=== PATIENT | female | born 1965 | race Caucasian/White ===

== ENCOUNTER → 2016-12-06 | Outpatient (CLI) | payer BC | END | disposition home or self-care (01) | LOC: C.PAPS 09:25 | PROVIDERS: ATTEND Obstetrics & Gynecology | DX: Z01.419 Encounter for gynecological examination (general) (routine) without abnormal findings (principal) ==

== ENCOUNTER → 2017-01-10 | Outpatient (CLI) | payer BC ==
--- NOTE | 2017-01-11 12:10 | MAMMOGRAPHY REPORT ---
BILATERAL DIGITAL SCREENING MAMMOGRAM TOMOSYNTHESIS WITH CAD: 01/10/2017 CLINICAL HISTORY: Routine screening. Patient has no complaints. TECHNIQUE: Breast tomosynthesis in addition to standard 2D mammography was performed. Current study was also evaluated with a Computer Aided Detection (CAD) system. COMPARISON: Comparison is made to exams dated: 12/01/2015 mammogram, 09/25/2014 mammogram, 08/29/2013 mamm ogram, 07/19/2012 mammogram, 06/16/2011 mammogram, and 04/22/2010 mammogram - [facility] nter. BREAST COMPOSITION: The tissue of both breasts is heterogeneously dense, which may obscure small mas ses. FINDINGS: There are a few stable benign round microcalcifications in the lateral left breast. The pa renchymal pattern is similar to prior mammograms. No new suspicious mass, architectural distortion o r cluster of microcalcifications is seen. IMPRESSION: ACR BI-RADS CATEGORY 1: NEGATIVE There is no mammographic evidence of malignancy. A 1 year screening mammogram is recommended. The pa tient will receive written notification of the results. Approximately 10% of breast cancers are not detected with mammography. A negative mammographic report should not delay biopsy if a clinically suggestive mass is present. Fatemeh Gomez M.D. ay/:01/11/2017 08:10:44 Dry Cell Tester: Katie RENO(Liya)(M), [facility] letter sent: Normal 1/2 BI-RADS Code: ACR BI-RADS Category 1: Negative
== END | disposition home or self-care (01) ==
LOC: C.MAMM 17:19
PROVIDERS: ATTEND Obstetrics & Gynecology
DX: Z12.31 Encounter for screening mammogram for malignant neoplasm of breast (principal)

== ENCOUNTER → 2017-06-13 | Outpatient (CLI) | payer BC ==
[2017-06-13 13:46] LABS: BLOOD UREA NITROGEN 12 mg/dl (7-18); BUN/CREATININE RATIO 13.6 (10-20); CALCIUM 8.7 mg/dl (8.5-10.1); CARBON DIOXIDE 27 mmol/L (21-32); CHLORIDE 105 mmol/L (98-107); CREATININE 0.87 mg/dl (0.60-1.20); GLUCOSE 119 mg/dl (70-99); POTASSIUM 3.8 mmol/L (3.5-5.1); SODIUM 136 mmol/L (136-145)
[2017-06-13 13:49] LABS: CHOLESTEROL 250 mg/dl (0-200); CHOLESTEROL/HDL RATIO 6.1; HDL CHOLESTEROL 41 mg/dl; LDL CHOLESTEROL CALCULATED 170 mg/dl; TRIGLYCERIDES 194 mg/dl (0-150); VERY LOW DENSITY LIPOPROT CALC 39 mg/dl
== END | disposition home or self-care (01) ==
LOC: C.LABPVFM 10:19
PROVIDERS: ATTEND Nurse Practitioner
DX: R73.01 Impaired fasting glucose (principal); E78.00 Pure hypercholesterolemia, unspecified

== ENCOUNTER 2019-01-17 08:04 | Observation (INO) ==
--- NOTE | 2018-12-23 14:25 | PAT Medication Instructions ---
Medication Instructions Date of Service December 23, 2018 Home Medications Medication Instructions Recorded atorvastatin 10 mg tablet 10 mg PO QPM #90 tab 12/16/18 atorvastatin 10 mg tablet 10 mg PO QPM cholecalciferol (vitamin D3) [Vitamin D3] 1,000 unit PO QPM sertraline 100 mg PO QPM Take evening before surgery atorvastatin 10 mg tablet 10 mg PO QPM cholecalciferol (vitamin D3) [Vitamin D3] 1,000 unit PO QPM sertraline 100 mg PO QPM Other Notes If you have any questions please call us at [phone] or [phone] or [phone] or [phone]
--- NOTE | 2018-12-24 11:42 | Anesthesiology Consultation ---
Date of Service December 24, 2018 Assessment & Plan (1) Encounter for pre-operative examination: - Preop EKG done 12/24/18 still unconfirmed at time of review. Will need to review confirmed EKG AM DOS. - Check test AM DOS Chart Review Chart Review: Acceptable Risk for Surgery and Patient seen in Pre Admission Testing Teaching & Discussion Pre-Anesthesia Teaching/Discussion Notes: Instructed NPO after midnight before surgery,except medications with 15 cc of water. Medication instructions provided according to the PAT guidelines. History Surgery Operation Date: 01/17/19 09:50 Proposed Procedures p Robotic Total Laparoscopic Hysterectomy - Kaley Chapman MD, FACOG Height/Weight Height: 5 ft 2.25 in Weight: 65.5 kg Allergies Allergy/AdvReac Type Severity Reaction Status Date / Time erythromycin base AdvReac Intermediate Diarrhea Verified 12/19/18 14:13 Medications Home Medications Medication Instructions Recorded Confirmed Last Taken atorvastatin 10 mg tablet 10 mg PO QPM #90 tab 12/16/18 Unknown cholecalciferol (vitamin D3) 1,000 unit PO QPM 12/19/18 12/19/18 Unknown [Vitamin D3] sertraline 100 mg PO QPM 12/19/18 12/19/18 Unknown Past Medical History Medical History Anxiety History of IBS Hyperlipidemia Osteoarthritis Exercise / Class Metabolic Activity II 4-5 Yardwork/Stairs/Walk up hill Past Family History Family History Grandfather (Paternal) Family history of diabetes mellitus Uncle Family history of esophageal cancer Past Surgical History Surgical History History of colonoscopy History of tooth extraction Hx of LASIK Past Anesthesia History No Hx of Anesthesia Complications and No Family Hx of Anesthesia Complications History of PONV No Hx of PONV and Hx of Motion Sickness Social History Smoking Status: Never smoker Do You Dip or Chew Tobacco: No Hx Alcohol Use: Yes alcohol intake frequency: holidays/special occasions only Hx Substance Use: No substance use type: does not use Review of Systems Patient denies chest pain, shortness of breath, dyspnea on exertion, reflux, cough, wheezing, palpitations. Physical Exam Vital Signs VITALS BP 127/75 P 74 TEMP 97.9 SP02 97%RA RESP 16 PHYSICAL Full neck and c-spine range of motion. Full TMJ range of motion. TMD 2.5 finger breaths Mallampati Score 3 Dentition: intact, upper front crowns, implants on upper front/sides, crowns on lower molars Lungs: clear throughout to auscultation Cardiac: regular rate and rhythm, no murmurs noted Spine: normal Carotid arteries: negative bruit Extremities: no edema Testing Laboratory Results 12/24/18 12:10 Blood Type A Positive 12/24/18 12:10 Antibody Screen NEGATIVE 12/24/18 12:10 12/18/18 SODIUM 139 POTASSIUM 4.1 CHLORIDE 106 CO2 28 BUN 15 CREATININE 0.89 GLUCOSE 84 Electrocardiogram Date: 12/24/18 NSR at 71bpm. Rightward axis (unconfirmed) Chest X-Ray Date: 12/24/18 Findings: + NAD
--- NOTE | 2018-12-24 12:57 | XRay Report ---
XR chest Pre-admission PA/Lat HISTORY: 53 years-old Female pat preoperative exam. COMPARISON: None available TECHNIQUE: PA and lateral views of the chest FINDINGS: Cardiomediastinal and hilar silhouettes are within normal limits. No pneumothorax, pleural effusion, focal airspace consolidation or overt pulmonary edema. Bones of the chest appear grossly intact. IMPRESSION: No acute process. The above report was generated using voice recognition software. It may contain grammatical, syntax o r spelling errors. Electronically signed by: Fam Parra M.D. 12/24/2018 12:56 PM
[2018-12-24 13:33] LABS: Basophils # (auto) 0.05 K/uL (0-0.2); Basophils % (auto) 0.9 %; Eosinophils # (auto) 0.08 K/uL (0-0.5); Eosinophils % (auto) 1.4 %; Hematocrit (blood only) 41.3 % (37-47); Hemoglobin 15.2 g/dL (12.0-16.0); Immature Granulocytes # (auto) 0.01 K/uL (0.00-0.02); Immature Granulocytes % (auto) 0.2 %; Lymphocytes # (auto) 1.92 K/uL (1.2-3.4); Lymphocytes % (auto) 33.2 %; Mean Corpuscular Hgb Conc 36.8 g/dL (32-36); Monocytes # (auto) 0.34 K/uL (0.11-0.59); Monocytes % (auto) 5.9 %; Neutrophils # (auto) 3.39 K/uL (1.4-6.5); Neutrophils % (auto) 58.4 %; Platelet Count 271 K/uL (130-400); RDW Coefficient of Variation 11.9 % (11.5-14.5); RDW Standard Deviation 37.6 fL (36.4-46.3); White Blood Count 5.79 K/uL (4.8-10.8)
[~2019-01-17 08:04] MED LIST: ACETAMINOPHEN 1000 MG/100 ML IV IV ONE; CEFAZOLIN 2000MG 2,000 MG/15 ML SYR IV SCH; LACTATED RINGER'S 1,000 ML IV SCH; LR 15ML/HR IV SCH
[2019-01-17] MEDS ORDERED: ePHEDrine sulfate 50 MG/ML AMP IV PRN (08:49)
[2019-01-17] MEDS ORDERED: ONDANSETRON INJ 2 MG/ML 2 ML VIAL IV PRN ×2 (08:49→14:03)
[2019-01-17] MEDS ORDERED: HYDROmorphone INJ 1 MG/ML SYRINGE IV PRN (08:49)
[2019-01-17] MEDS ORDERED: MEPERIDINE HCL 25 MG/ML CARP IV PRN (08:49)
[2019-01-17] MEDS ORDERED: PHENYLEPHRINE 100MCG/ML 5ML SYR IV PRN (08:49)
[2019-01-17] MEDS ORDERED: ATROPINE SULFATE 0.1 MG/ML 10ML SYR IV PRN (08:49)
[2019-01-17] MEDS ORDERED: GLYCOPYRROLATE 0.2 MG/ML VIAL ONE (09:25)
[2019-01-17] MEDS ORDERED: fentaNYL citrate 100 MCG/2 ML VIAL ONE ×4 (09:25→13:06)
[2019-01-17] MEDS ORDERED: MIDAZOLAM HCL 1 MG/ML 2ML VIAL ONE (09:25)
[2019-01-17] MEDS ORDERED: ONDANSETRON INJ 2 MG/ML 2 ML VIAL ONE ×2 (09:25→11:54)
[2019-01-17] MEDS ORDERED: PROPOFOL IV EMULSION 10 MG/ML 20 ML VIAL IV ONE (09:25)
[2019-01-17] MEDS ORDERED: NEOSTIGMINE METHYLSULFATE 5 MG/5 ML SYR ONE (09:25)
[2019-01-17] MEDS ORDERED: LIDOCAINE HCL 2% 2 ML VIAL/AMP(20MG/ML) INFIL ONE (09:25)
[2019-01-17] MEDS ORDERED: ROCURONIUM BROMIDE 10 MG/ML 5 ML VIAL ONE (09:25)
[2019-01-17] MEDS ORDERED: DEXAMETHASONE SOD INJ 4 MG/ML VIAL ONE ×2 (09:25→11:54)
--- NOTE | 2019-01-17 09:26 | History & Physical Bridge Note ---
Date of Service January 17, 2019 History & Physical Bridge Note I have examined the patient, reviewed the History & Physical and in the interval since the performance of the History & Physical I have noted the following changes of clinical significance: no changes noted
[2019-01-17] MEDS ORDERED: SCOPOLAMINE 1.5 MG TDSY ONE (09:34)
[2019-01-17] MEDS ORDERED: SCOPOLAMINE 1.5 MG TDSY TD ONE (09:37)
[2019-01-17] MEDS ORDERED: BUPIVACAINE 0.5 % 5 MG/1 ML MPF 30ML VIAL ONE (09:49)
[2019-01-17] MEDS ORDERED: TISSEEL FIBRIN SEALANT 4ML TOP ONE (11:27)
--- NOTE | 2019-01-17 12:27 | Operative Report ---
Post Operative Report Pre & Post Diagnosis Operation Date: 01/17/19 09:20 Pre-Op Diagnosis: Uterine Enlargement, Leiomyoma Post-Op Diagnosis: Uterine Enlargement, Leiomyoma, Fibroid greater than 250 grams Procedure Operation Date: 01/17/19 09:20 Actual Procedures p Robotic Total Laparoscopic Hysterectomy, Bilateral Salpingectomy, Cystoscopy - Kaley Chapman MD, FACOG Surgeon Kaley Chapman MD, FACOG Smudger Dr. Dixon Estimated Blood Loss 15 Findings Consistent with Post-Op Diagnosis Specimens Uetrus, cervix, tubes Description of Procedure Patient given a general anesthetic prepped and draped in dorsal lithotomy position in [facility] bladder drained with a Puga catheter V care sewn in place into the uterus glove change and a supraumbilical umbilical incision made with the scalpel Morel technique we did a cutdown into the peritoneal cavity blunt-tipped Morel trocar placed balloon inflated in the port to stabi lize it CO2 gas then used to insufflate the peritoneal cavity. Findings upper abdomen normal no sign of visceral organ injury deep Trendelenburg position then obtained and we visualized the uterus and the fibroids there was a large posterior fibroid that was attached to the left pelvic sidewall and in fact it was invading into the left broad ligament there were other small fibroids but the massive fibroid which was expected was posterior and also a broad ligament fibroid 3 robotic ports 2 in the right one in the left placed under direct visualization left upper quadrant 10 mm blade less port then placed robot docked arm #1 was monopolar branden arm #2 was bipolar [place] arm #3 was the tenaculum manipulating the uterus I was able to identify on the left side the fallopian tube and this was removed in the usual fashion and then removed for the excess report same process on the right side we then paid attention to the left ureter we opened up the peritoneum over the left ureter Puga dissected the ureter away and then placed a vessel loop around it to help identify at this stage it was then able to coagulate the blood supply distal to the left ovary staying well away from the left ureter I was able to also excise the peritoneum over the fibroid on this left posterior side and then anteriorly find the bladder flap area and identify the cervix. We then paid attention to the right side where the ureter was well visualized followed in normal course I was able to coagulate the blood supply distal distal to the right ovary blood supply was then cut same process with the left round ligament and then uterine vessels were skeletonized on the right side. Was able to coagulate and cut the right uterine vessels in the usual fashion. At this stage I actually was able to follow over anteriorly and find the left-sided vessels I was able to coagulate these with the bipolar [place] and can cut these with the monopolar branden at this stage since blood supply was largely controlled it was able to use the tenaculum to grasp the large broad ligament posterior fibroid and pull it medially away from its attachments this freed it completely and allowed full exposure of the left side. Vessels had already been coagulated and we freed all attachments colpotomy was then made anteriorly with the monopolar branden colpotomy completed we attempted to remove it vaginally the specimen and were able to do so without difficulty. At this stage we then exchanged instruments arm #1 became the EGA needle electric truck driver arm #2 became the [employer] grasper using a 12 inch 2 oh 90-day V lock suture cuff was closed from left to right back right to left suture was cut to there was no tail I placed reinforcing 2-0 Vicryls on small taper needles and [id number] at each corner to ensure approximation. [place] were removed for the excess report after this stage Tisseel was applied note we have suction irrigated prior to this Cystoscopy was performed by removing the Puga catheter should be noted there was a glove with a sponge in the vagina but this was removed to allow closure afterwards. Cystoscopy remained revealed normal bladder no sutures good strong jets of urine from both left and right ureter openings cystoscope removed and a new Puga catheter placed. The vagina had no tears and there was no active bleeding On reinspection with the laparoscope all the pedicles have been covered with Tisseel hemostasis was excellent entrance removed under direct visualization robot undocked ports removed incisions injected with 0.5% Marcaine fascia closed carefully with 0 Vicryl in the umbilical and left upper quadrant incisions 4 oh septic or Monocryl closures and Dermabond sponge and estimate counts correct I attest to the content of the Intraoperative Record and any orders documented therein. Any exceptions are noted below.
[2019-01-17] MEDS ORDERED: LABETALOL HCL IV 5 MG/ML 20ML IV ONE (12:52)
[2019-01-17] MEDS: LABETALOL HCL IV 5 MG/ML 20ML IV PRN ×3 (12:53→13:16)
[2019-01-17] MEDS: fentaNYL citrate 100 MCG/2 ML VIAL IV PRN ×3 (13:07→13:31)
[2019-01-17] MEDS ORDERED: HydrALAZINE HCL 20 MG/ML VIAL ONE (13:28)
[2019-01-17] MEDS ORDERED: HydrALAZINE HCL 20 MG/ML VIAL IV STA (13:28)
--- NOTE | 2019-01-17 13:54 | Anesthesiology Progress Note ---
Date of Service January 17, 2019 Anesthesia Post Procedure Vital Signs Vital Signs: Temp Pulse Pulse Resp BP Pulse Ox 01/17/19 13:35 86 15 169/101 H 96 01/17/19 13:25 82 15 168/99 H 95 01/17/19 13:15 78 15 175/93 H 96 01/17/19 13:10 76 15 162/92 H 95 01/17/19 13:05 75 15 170/89 H 95 01/17/19 12:55 85 16 177/95 H 97 01/17/19 12:45 86 16 200/99 H 97 01/17/19 12:36 37.2 C 86 19 187/80 H 95 01/17/19 08:22 36.6 C 80 20 165/76 H 95 Pain Intensity Abdomen: Pain Intensity: 4 Transfer of Care Handoff Completed per policy Notes Mental Status: alert / awake / arousable Patient Amnestic to Procedure: Yes Nausea / Vomiting: adequately controlled Pain: adequately controlled Airway Patency, RR, SpO2: stable & adequate BP & HR: stable & adequate and see Notes below Hydration State: stable & adequate Anesthetic Complications: no major complications apparent and Pt Satisfied with anesthetic care Notes: The patient was hypertensive in the PACU and was treated with labetalol and hydralazine.
[2019-01-17] MEDS ORDERED: MAGNESIUM HYDROXIDE SUSP 30 ML UDC PO PRN (14:03)
[2019-01-17] MEDS ORDERED: SIMETHICONE 80 MG CHEW PO PRN (14:03)
[2019-01-17] MEDS ORDERED: LACTATED RINGER'S 1,000 ML IV SCH (14:03)
[2019-01-17] MEDS ORDERED: IBUPROFEN 600 MG TAB PO PRN (14:03)
[2019-01-17] MEDS ORDERED: ACETAMINOPHEN 325 MG TAB PO PRN (14:03)
[2019-01-17] MEDS ORDERED: OXYCODONE/ACETAMINOPHEN 5mg/325mg TAB PO PRN ×2 (14:03)
[2019-01-17] MEDS ORDERED: BISACODYL 10 MG SUPP PR PRN (14:03)
[2019-01-17] MEDS ORDERED: ZOLPIDEM TARTRATE 5 MG TAB PO PRN (14:03)
[2019-01-17] MEDS ORDERED: PROMETHAZINE HCL 12.5 MG in SODIUM CHLORIDE 0.9% 50 ML IV PRN (14:03)
[2019-01-17] MEDS ORDERED: KETOROLAC 30 MG/ML VIAL IV PRN (14:03)
[2019-01-17] MEDS ORDERED: MEPERIDINE HCL 50 MG/ML CARP IV PRN (14:03)
[2019-01-17] MEDS ORDERED: CHECK SCOPOLAMINE PATCH PLACEMENT SCH (16:00)
[2019-01-17 20:26] LABS: Hematocrit (blood only) 41.9 % (37-47); Hemoglobin 15.4 g/dL (12.0-16.0)
[2019-01-17] MEDS ORDERED: CHOLECALCIFEROL 1,000 UNITS TAB PO SCH (21:00)
[2019-01-17] MEDS ORDERED: ATORVASTATIN 10 MG TAB PO SCH (21:00)
[2019-01-17] MEDS: DOCUSATE SODIUM 100 MG CAP PO SCH (21:21)
[2019-01-17] MEDS: SERTRALINE HCL 100 MG TABLET PO SCH (21:21)
--- NOTE | 2019-01-18 07:44 | Gynecologic Progress Note ---
Date of Service doing well. no bleeding no extremeity pain. ambulating. January 18, 2019 Assessment & Plan (1) Uterine enlargement: home Physical Exam Constitutional: WD/WN, vitals as above Gastrointestinal (Abdomen): normal bowel sounds, soft, nontender, no hepatosplenomegaly incisions healing, ext negative Results & Data Vital Signs (Past 12 Hours) Vital Signs Temp Pulse Resp BP Pulse Ox Pulse Ox 01/18/19 03:35 36.6 C 104 H 18 121/68 95 95 01/17/19 23:40 36.9 C 102 H 18 114/67 93 93 01/17/19 19:50 37.0 C 109 H 18 130/73 97
[2019-01-18] MEDS: SERTRALINE HCL 100 MG TABLET PO SCH (08:20)
[2019-01-18] MEDS: DOCUSATE SODIUM 100 MG CAP PO SCH (08:21)
[2019-01-18 08:45] LABS: Basophils # (auto) 0.02 K/uL (0-0.2); Basophils % (auto) 0.1 %; Eosinophils # (auto) 0.01 K/uL (0-0.5); Eosinophils % (auto) 0.1 %; Hematocrit (blood only) 39.5 % (37-47); Hemoglobin 14.3 g/dL (12.0-16.0); Immature Granulocytes # (auto) 0.03 K/uL (0.00-0.02); Immature Granulocytes % (auto) 0.2 %; Lymphocytes # (auto) 1.92 K/uL (1.2-3.4); Lymphocytes % (auto) 13.2 %; Mean Corpuscular Hgb Conc 36.2 g/dL (32-36); Mean Corpuscular Volume 87.6 fL (80-100); Mean Platelet Volume 9.7 fL (7.4-10.4); Monocytes # (auto) 1.03 K/uL (0.11-0.59); Monocytes % (auto) 7.1 %; Neutrophils # (auto) 11.55 K/uL (1.4-6.5); Neutrophils % (auto) 79.3 %; Platelet Count 280 K/uL (130-400); RDW Coefficient of Variation 12.3 % (11.5-14.5); RDW Standard Deviation 39.4 fL (36.4-46.3); Red Blood Count 4.51 M/uL (4.2-5.4); White Blood Count 14.56 K/uL (4.8-10.8)
--- NOTE | 2019-01-20 10:19 | Discharge Summary ---
Admission Exam (Per Admitting) Constitutional WD/WN, vitals as above Gastrointestinal (Abdomen) normal bowel sounds, soft, nontender, no hepatosplenomegaly Discharge Data Procedures Performed Operation Date: 01/17/19 09:20 Actual Procedures p Robotic Total Laparoscopic Hysterectomy, Bilateral Salpingectomy, - Kaley Chapman MD, FACOG s Cystoscopy - Kaley Chapman MD, FACOG Hospital Course (1) Uterine enlargement: Patient had a total laparoscopic hysterectomy on January 17 and met criteria to go home on POD#[1] At that time she was ambulating well. Tolerating an oral diet. Pain was well controlled. No extremity pain. No bleeding. Voiding well. Discharge instructions were reviewed and prescriptions for pain control were sen t and discussed. Patient advised to call with any concerns and follow up discussed including limitations on activity.
== END 2019-01-18 09:55 | disposition home or self-care (01) ==
LOC: ASU 08:04 → 4N 08:04